=== PATIENT | female | born 1935 | race Caucasian/White ===

== ENCOUNTER → 2018-10-30 17:07 | Outpatient (CLI) | payer MEDICARE, BC ==
[2018-10-30 17:21] LABS: BASOPHILS 0.5 % (0-2); EOSINOPHILS 1.1 % (0-7); HEMATOCRIT 35.7 % (36.0-48.0); HEMOGLOBIN 11.8 g/dL (12-16); IMMATURE GRANULOCYTES 0.1 % (0-5); LYMPHOCYTES 20.7 % (15-50); MCH 31.8 pg (26.0-34.0); MCHC 33.1 g/dL (31.0-37.0); MCV 96.2 fL (80.0-100.0); MEAN PLATELET VOLUME 10.6 fL (7.4-10.4); MONOCYTES 7.2 % (2-11); NEUTROPHILS 70.4 % (40-80); PLATELET COUNT 192 10x3/uL (130-400); RBC 3.71 10x6/uL (4.00-5.40); RDW 12.4 % (11.5-14.5); WBC 8.5 10x3/uL (4.8-10.8)
== END | disposition home or self-care (01) ==
LOC: D.LABREF 17:07
PROVIDERS: ATTEND Legal Medicine
DX: D64.9 Anemia, unspecified (principal)